=== PATIENT | male | born 1985 | race Two or more races ===

== ENCOUNTER 2018-04-10 14:37 | Outpatient (CLI) | payer OTHER | END 2018-04-10 16:45 | disposition home or self-care (01) | LOC: RAD 501 14:37 | DX: M77.31 Calcaneal spur, right foot (principal); M77.32 Calcaneal spur, left foot ==

== ENCOUNTER 2021-08-25 20:36 | Emergency (ER) | payer OTHER ==
[~2021-08-25] VITALS: Ht 175.3 cm; Wt 79.4 kg
[2021-08-25] MEDS ORDERED: ALIVE (21:31)
[2021-08-25] MEDS ORDERED: ORPHENADRINE C100 MG PO (23:42)
[2021-08-25] MEDS ORDERED: KETO10TA2 PO (23:42)
== END 2021-08-26 00:04 ==
LOC: ER 20:36
DX: S76.011A Strain of muscle, fascia and tendon of right hip, initial encounter (principal); S76.811A Strain of other specified muscles, fascia and tendons at thigh level, right thigh, initial encounter; W18.2XXA Fall in (into) shower or empty bathtub, initial encounter; Y93.E1 Activity, personal bathing and showering; Y92.012 Bathroom of single-family (private) house as the place of occurrence of the external cause; Y99.8 Other external cause status; S71.111A Laceration without foreign body, right thigh, initial encounter

== ENCOUNTER 2022-07-08 13:10 | Outpatient (CLI) | payer OTHER ==
[~2022-07-08 13:10] MED LIST: ALIVE; KETO10TA2 PO; ORPHENADRINE C100 MG PO
== END 2022-07-08 13:23 | disposition home or self-care (01) ==
LOC: RAD 13:10
DX: M25.519 Pain in unspecified shoulder (principal)